=== PATIENT | female | born 2000 | race Asian ===

== ENCOUNTER → 2019-12-29 16:12 | Outpatient (CLI) | payer OTHER, SELFPAY ==
[2019-12-29 17:28] LABS: HEMOLYSIS 32 (0-50); Iron 92 ug/dL (37-170)
[2019-12-29 17:39] LABS: Percent Iron Saturation 26 % (15-50); Total Iron Binding Capacity 354 ug/dL (265-497); Transferrin 278 mg/dL (206-381)
[2019-12-29 17:43] LABS: Ferritin 11 ng/mL (6-137)
== END ==
PROVIDERS: PCP Registered Nurse Diabetes Educator; Referring Provider Registered Nurse Diabetes Educator; Visit Provider Registered Nurse Diabetes Educator
DX: E61.1 Iron deficiency (principal)
CPT/HCPCS: 36415; 82728; 83540; 83550